=== PATIENT | female | born 1930 | race Caucasian/White ===

== ENCOUNTER 2018-04-03 13:35 | Inpatient (IN) | payer OTHER ==
[~2018-04-03] VITALS: Ht 149.9 cm; Wt 53.1 kg
--- NOTE | 2018-04-03 13:35 | NUR ---
PATIENT AMBULATED WITH FAMILY TO ER BED 12.
--- NOTE | 2018-04-03 13:40 | NUR ---
PT IS A 87 Y/O FEMALE BIB FAMILY WHO PRESENTS TO THE ED C/O HEADACHE. PER FAMILY PT HAS HAD INCREASING FREQUENCE OF HEADACHES OVER THE LAST FEW WEEKS. FAMILY STATES THAT PT WAS SEEN BY PCP AND DX WITH INCREASED FORGETFULLNESS. PT IN NO SIGNS OF PAIN AT THIS TIME. PT IN NO SIGNS OF CP, SOB, N/V/D. PT AWAKE AND ALERT, RR EVEN/UNLABORED. PT REPOSITIONED FOR COMFORT, BED IN LOWEST POSITION. ER MD DR. SHETH NOTIFIED. WILL CONTINUE TO MONITOR. HX---DM, HTN, DEPRESSION MEDS---FOSAMAX, LOSARTAN, ROPINAROLE, SERTRALINE, QUETAPINE, DONEZAPIL
[2018-04-03 13:51] VITALS: BP 156/48
--- NOTE | 2018-04-03 14:46 | NUR ---
PT BEING SEEN BY DR. SHETH.
[2018-04-03] MEDS ORDERED: KETOROLAC 60 MG/2 ML VIAL IM ONE (14:50)
[2018-04-03 15:50] LABS: BASOPHILS # (AUTO) 0.1 K/uL (0.00-0.22); BASOPHILS % (AUTO) 1.1 % (0.0-2.0); EOSINOPHILS # (AUTO) 0.1 K/uL (0-0.4); HEMATOCRIT 42.6 % (36-48); HEMOGLOBIN 14.3 g/dL (12.0-16.0); LYMPHOCYTES # (AUTO) 1.8 K/uL (2.5-16.5); LYMPHOCYTES % (AUTO) 30.5 % (20.5-51.1); MEAN CORPUSCULAR HEMOGLOBIN 30 pg (27-31); MEAN CORPUSCULAR HGB CONC 34 g/dL (33-37); MEAN CORPUSCULAR VOLUME 89.4 fL (80-94); MONOCYTES # (AUTO) 0.5 K/uL (0.8-1.0); NEUTROPHILS # (AUTO) 3.3 K/uL (1.8-7.7); NEUTROPHILS % (AUTO) 57.4 % (42.2-75.2); PLATELET COUNT (AUTO) 233 K/uL (140-450); RED BLOOD CELL COUNT(AUTO) 4.77 MIL/uL (4.20-5.40); RED CELL DISTRIBUTION WIDTH 13.9 % (11.6-13.7); WHITE BLOOD COUNT (AUTO) 5.8 K/uL (4.8-10.8)
[2018-04-03 16:19] LABS: PROTHROMBIN TIME 9.1 secs (10.8-13.4)
[2018-04-03] MEDS ORDERED: LOSA50TA1 PO (16:19)
[2018-04-03] MEDS ORDERED: [UNRECOGNIZED DRUG - CODE] PO (16:19)
[2018-04-03] MEDS ORDERED: DONE10TA10 PO (16:19)
[2018-04-03] MEDS ORDERED: QUET25TA PO (16:19)
--- NOTE | 2018-04-03 16:29 | NUR ---
PT BEING SEEN BY DR. SHETH
[2018-04-03 17:18] LABS: CHLORIDE 100 mmol/L (98-107); GLUCOSE 149 mg/dL (74-106); SODIUM SERUM 139 mmol/L (136-145)
[2018-04-03 17:19] LABS: ANION GAP 19.3 (8-16); CARBON DIOXIDE 23.5 mmol/L (21-32); CREATININE 0.8 mg/dL (0.6-1.3); POTASSIUM 3.8 mmol/L (3.5-5.1); UREA NITROGEN, BLOOD 14 mg/dL (7-18)
[2018-04-03 17:21] LABS: ALBUMIN 4.2 g/dL (3.4-5.0)
[2018-04-03 17:22] LABS: TOTAL BILIRUBIN 0.7 mg/dL (0.0-1.0)
[2018-04-03 17:23] LABS: ASPARTATE AMINOTRANSFERASE 21 U/L (15-37)
[2018-04-03] MEDS ORDERED: DEXTROSE 50% 50 ML SYR IVP PRN (18:20)
[2018-04-03] MEDS ORDERED: HYDROcodone/APAP 5/325 MG 1 TAB TAB PO PRN (18:20)
[2018-04-03] MEDS ORDERED: ONDANSETRON 4 MG/2 ML VIAL IVP PRN (18:20)
[2018-04-03] MEDS ORDERED: ACETAMINOPHEN 325 MG TAB PO PRN (18:20)
[2018-04-03] MEDS ORDERED: LORazepam 2 MG/ML VIAL IVP PRN (18:20)
--- NOTE | 2018-04-03 19:21 | NUR ---
REPORT GIVEN TO HVAC ESTIMATOR RN FOR CONTINUITY OF CARE.
--- NOTE | 2018-04-03 19:22 | NUR ---
report recieved from Padmini CHISHOLM
--- NOTE | 2018-04-03 19:35 | NUR ---
RECEIVED REPORT FROM ED RN FOR CONTINUITY OF CARE. PT IS A/OX3 BUT FORGETFUL, ON ROOM AIR. PT AMBULATES WITH ASSISTANCE, AND SKIN IS PINK/WARM/DRY AND INTACT. PT IS ABLE TO MAKE NEEDS KNOWN, AND ABLE TO FOLLOW COMMANDS. LUNGS SOUNDS CLEAR, HR EVEN AND REGULAR. PT HAS 20G IV TO LEFT FOREARM, ASYMPTOMATIC AND INTACT. PT DENIES ANY PAIN AT THIS TIME. BP SLIGHTLY ELEVATED, OTHER VITAL SIGNS STABLE. NO SIGNS OF DISTRESS NOTED. PT POSITIONED FOR COMFORT. BED RAILS UP X2, BED IN LOWEST POSITION. CALL LIGHT WITHIN REACH, WILL CONTINUE TO MONITOR.
--- NOTE | 2018-04-03 19:40 | NUR ---
PT Admited to Med/Surg, room 108B. Transfered via wheelchair with VSS. Belongings list completed. Report to Dorina CHISHOLM.
[2018-04-03 20:00] VITALS: BP 158/68
[2018-04-03] MEDS: DONEPEZIL 10 MG TAB PO SCH (20:57)
[2018-04-03] MEDS: QUEtiapine FUMARATE 25 MG TAB PO SCH (20:57)
[2018-04-03] MEDS: BLOOD GLUCOSE MONITORING 1 DEV DEV FS SCH (20:58)
[2018-04-03] MEDS: INSULIN LISPRO SLIDING SCALE 100 UNITS/ML VIAL SUBQ PRN (21:01)
--- NOTE | 2018-04-03 21:01 | NUR ---
ADMINISTERED SCHEDULED MEDICATIONS, PT VERBALIZED UNDERSTANDING OF MEDS AND TOLERATED ADMINISTRATION WELL.
[2018-04-04] VITALS: BP 148/82
--- NOTE | 2018-04-04 | NUR ---
VITAL SIGNS STABLE. NO SIGNS OF DISTRESS NOTED. PT POSITIONED FOR COMFORT. BED RAILS UP X2, BED IN LOWEST POSITION. CALL LIGHT WITHIN REACH, WILL CONTINUE TO MONITOR.
--- NOTE | 2018-04-04 02:10 | NUR ---
PT RESTING IN ROOM COMFORTABLY. NO SIGNS OF DISTRESS NOTED. PT POSITIONED FOR COMFORT. BED RAILS UP X2, BED IN LOWEST POSITION. CALL LIGHT WITHIN REACH, WILL CONTINUE TO MONITOR.
--- NOTE | 2018-04-04 05:20 | NUR ---
PT STILL RESTING, NO SIGNS OF DISTRESS NOTED.
[2018-04-04] MEDS: BLOOD GLUCOSE MONITORING 1 DEV DEV FS SCH ×4 (06:14→21:57)
[2018-04-04 07:10] LABS: BASOPHILS # (AUTO) 0.1 K/uL (0.00-0.22); EOSINOPHILS # (AUTO) 0.1 K/uL (0-0.4); EOSINOPHILS % (AUTO) 2.3 % (0.0-4.0); HEMATOCRIT 43.9 % (36-48); HEMOGLOBIN 14.4 g/dL (12.0-16.0); LYMPHOCYTES # (AUTO) 1.9 K/uL (2.5-16.5); LYMPHOCYTES % (AUTO) 34.3 % (20.5-51.1); MEAN CORPUSCULAR HEMOGLOBIN 30 pg (27-31); MEAN CORPUSCULAR HGB CONC 33 g/dL (33-37); MEAN CORPUSCULAR VOLUME 90.1 fL (80-94); MONOCYTES # (AUTO) 0.5 K/uL (0.8-1.0); MONOCYTES % (AUTO) 9.5 % (1.7-9.3); NEUTROPHILS % (AUTO) 52.9 % (42.2-75.2); PLATELET COUNT (AUTO) 227 K/uL (140-450); RED BLOOD CELL COUNT(AUTO) 4.87 MIL/uL (4.20-5.40); WHITE BLOOD COUNT (AUTO) 5.7 K/uL (4.8-10.8)
[2018-04-04 07:18] LABS: ANION GAP 13.3 (8-16); CARBON DIOXIDE 28.7 mmol/L (21-32); CHLORIDE 103 mmol/L (98-107); CREATININE 0.8 mg/dL (0.6-1.3); GLUCOSE 124 mg/dL (74-106); SODIUM SERUM 141 mmol/L (136-145); UREA NITROGEN, BLOOD 18 mg/dL (7-18)
--- NOTE | 2018-04-04 07:33 | NUR ---
ENDORSED PT TO DAY SHIFT PHAN AMAYA FOR CONTINUITY OF CARE. PT IN STABLE CONDITION.
--- NOTE | 2018-04-04 07:52 | NUR ---
RECEIVED REPORT FROM EDGER TAILER RN FOR CONTINUITY OF CARE. PT IS A/OX3 BUT FORGETFUL, ON ROOM AIR. PT AMBULATES WITH ASSISTANCE, AND SKIN IS PINK/WARM/DRY AND INTACT. PT IS ABLE TO MAKE NEEDS KNOWN, AND ABLE TO FOLLOW COMMANDS BUT SHOWS SIGNS OF CONFUSION. LUNGS SOUNDS CLEAR, HR EVEN AND REGULAR. PT HAS 20G IV TO LEFT FOREARM THAT'S SALINE LOCKED, ASYMPTOMATIC AND INTACT. PT DENIES ANY PAIN AT THIS TIME. BP SLIGHTLY ELEVATED, OTHER VITAL SIGNS STABLE. NO SIGNS OF DISTRESS NOTED. PT POSITIONED FOR COMFORT. BED RAILS UP X2, BED IN LOWEST POSITION. CALL LIGHT WITHIN REACH, WILL CONTINUE TO MONITOR.
[2018-04-04 08:00] VITALS: BP 145/59
--- NOTE | 2018-04-04 08:53 | NUR ---
PATIENT HAS BEEN SCREENED AND CATEGORIZED MODERATE NUTRITION RISK. PATIENT WILL BE SEEN WITHIN 3-5 DAYS OF ADMISSION. 04/06/18 04/08/[address]
[2018-04-04] MEDS ORDERED: ROPINIROLE HCL 4 MG PO SCH (09:00)
[2018-04-04] MEDS: ENOXAPARIN 40 MG/0.4 ML SYR SUBQ SCH (09:18)
[2018-04-04] MEDS: LOSARTAN 50 MG TAB PO SCH (09:19)
--- NOTE | 2018-04-04 09:22 | NUR ---
ADMINISTERED SCHEDULED TO PT. PT TOLERATED MEDS WELL. ALL NEEDS MET AT THIS TIME. BED IN LOW POSITION, CALL LIGHT WITHIN REACH. BED ALARM ACTIVATED.
[2018-04-04] MEDS ORDERED: rOPINIRole 1 MG TAB PO SCH (12:00)
--- NOTE | 2018-04-04 13:50 | NUR ---
CM NOTE FAXED ORDER FOR SNF PLACEMENT TO [facility] [phone] AND LEFT VM TO [facility] KELSIE PH# [phone]. PHYSICAL THERAPY EVALUATION AND RECOMMENDATION PENDING. EUNICE JONES.
--- NOTE | 2018-04-04 14:23 | NUR ---
Fire Extinguisher Charger Note: I faxed inquiries to the following snfs: [facility] Per [facility] , they can't accept patient because they are anticipating for patient to be shelter. [facility] Addendum: 04/04/18 at 1432 by Elba Zabala SS Per Martin from [facility] , no beds at this time.
--- NOTE | 2018-04-04 15:19 | NUR ---
CM NOTE PER [facility] ANUM IGLESIAS PH# [phone], IF PATIENT NEEDS TO GO TO A SNF, FOR [facility] AUTH# [id number]. CHARGE NURSE ALDAIR JONES.
[2018-04-04 16:00] VITALS: BP 156/73
[2018-04-04] MEDS: INSULIN LISPRO SLIDING SCALE 100 UNITS/ML VIAL SUBQ PRN (17:55)
--- NOTE | 2018-04-04 19:35 | NUR ---
ENDORSED PT TP AUTOMOTIVE SALES REPRESENTATIVE FOR CONTINUITY OF CARE. PT IN STABLE CONDITION.
--- NOTE | 2018-04-04 19:36 | NUR ---
RECEIVED BEDSIDE REPORT FROM DAY SHIFT NURSE JOSE LUIS RN, PT STABLE, NO DISTRESS NOTED, IV TO L FA 20G PATENT, INTACT, SL, PT ON ROOM AIR NO SOB, INITIAL ASSESSMENT DONE, ALL SAFETY PRECAUTION MET, CALL LIGHT WITHIN REACH, WILL CONTINUE TO MONITOR.
[2018-04-04] MEDS: DONEPEZIL 10 MG TAB PO SCH (21:51)
[2018-04-04] MEDS: QUEtiapine FUMARATE 25 MG TAB PO SCH (21:51)
[2018-04-04] MEDS: rOPINIRole 1 MG TAB PO SCH (21:52)
--- NOTE | 2018-04-04 21:52 | NUR ---
DUE MEDICATION ADMINISTERED, NO DISTRESS NOTED, CALL LIGHT WITHIN REACH, WILL CONTINUE TO MONITOR.
[2018-04-05] VITALS: BP 143/68
--- NOTE | 2018-04-05 00:10 | NUR ---
CHECKED ON PT, PT RESTING NO DISTRESS NOTED, CALL LIGHT WITHIN REACH, WILL CONTINUE TO MONITOR.
--- NOTE | 2018-04-05 02:10 | NUR ---
PT AMBULATED WITH NURSE AROUND NURSING AREA, PT TOLERATED WELL, NO DISTRESS NOTED, CALL LIGHT WITHIN REACH, WILL CONTINUE TO MONITOR.
--- NOTE | 2018-04-05 05:10 | NUR ---
CHECKED ON PT, PT RESTING, NO DISTRESS NOTED, CALL LIGHT WITHIN REACH, WILL CONTINUE TO MONITOR.
[2018-04-05] MEDS: BLOOD GLUCOSE MONITORING 1 DEV DEV FS SCH ×4 (06:40→20:57)
[2018-04-05] MEDS: INSULIN LISPRO SLIDING SCALE 100 UNITS/ML VIAL SUBQ PRN ×3 (06:41→20:54)
--- NOTE | 2018-04-05 07:14 | NUR ---
ENDORSED PT TO DAY SHIFT NURSE [place] RN PT STABLE, NO DISTRESS NOTED, CALL LIGHT WITHIN REACH, WILL CONTINUE TO MONITOR.
--- NOTE | 2018-04-05 07:15 | NUR ---
RECEIVED BEDSIDE REPORT FROM CARD PUNCHING MACHINE OPERATOR RNMOISE. PT RESTING IN BED WITH EYES CLOSED, NO DISTRESS NOTED, IV SITE PATENT, INTACT, ASYMPTOMATIC, SALINE LOCKED. RESPIRATIONS EVEN AND UNLABORED, NO DISTRESS OR SOB NOTED ON ROOM AIR. UPDATED BOARD. SAFETY PRECAUTIONS IN PLACE, BED IN LOWEST POSITION WITH BRAKES ON, CALL LIGHT WITHIN REACH, WILL CONTINUE TO MONITOR PATIENT.
[2018-04-05 08:00] VITALS: BP 147/57
[2018-04-05] MEDS: rOPINIRole 1 MG TAB PO SCH ×2 (08:26→20:49)
[2018-04-05] MEDS: LOSARTAN 50 MG TAB PO SCH (08:27)
[2018-04-05] MEDS: ENOXAPARIN 40 MG/0.4 ML SYR SUBQ SCH (08:28)
--- NOTE | 2018-04-05 08:30 | NUR ---
ORDERED MEDICATIONS GIVEN. PATIENT TOLERATED THEM WELL. PATIENT FINISHING UP EATING BREAKFAST. PATIENT HAS NO COMPLAINTS AT THIS TIME, DENIES PAIN. SAFETY PRECAUTION IN PLACE, CALL LIGHT WITHIN REACH, WILL CONTINUE TO MONITOR PATIENT.
--- NOTE | 2018-04-05 12:10 | NUR ---
BLOOD SUGAR 205, COVERAGE GIVEN. PATIENT TOLERATED IT WELL. PATIENT AMBULATED TO BATHROOM WITH STANDBY ASSIST. PATIENT. PATIENT VOIDED. SAFETY PRECAUTION IN PLACE, CALL LIGHT WITHIN REACH, BED ALARM ON, WILL CONTINUE TO MONITOR PATIENT.
--- NOTE | 2018-04-05 13:45 | NUR ---
PATIENT RESTING IN BED COMFORTABLY WITH EYES CLOSED, RESPIRATIONS EVEN AND UNLABORED. SAFETY PRECAUTIONS IN PLACE, CALL LIGHT WITHIN REACH, BED ALARM ON, WILL CONTINUE TO MONITOR PATIENT.
--- NOTE | 2018-04-05 14:20 | NUR ---
ORIENTATED PATIENT ABOUT CALL LIGHT USE AND WHY BED ALARM WAS PRESENT, PATIENT VERBALIZED UNDERSTANDING BUT STATED THAT SHE DOESN'T "NEED THEM, I CAN WALK ON MY OWN". RN VERBALIZED UNDERSTANDING BUT EDUCATED PATIENT ELECTRONICS PROCESSING SUPERVISOR LIGHT USE AND BED ALARM PURPOSE. SAFETY PRECAUTIONS IN PLACE, WILL CONTINUE TO MONITOR PATIENT.
--- NOTE | 2018-04-05 15:15 | NUR ---
PATIENT C/O OF HER CARE, VERBALIZED TO PATIENT WHY CERTAIN PROTOCOLS ARE IN PLACE FOR HER SAFETY AND TO PREVENT FALLS. PATIENT VERBALIZED HER UNDERSTANDING BUT IS STILL FRUSTRATED. SON FLOR IN TO SEE THE PATIENT. UPDATED HIM ON PLAN OF CARE. WILL CONTINUE TO MONITOR PATIENT.
[2018-04-05 16:00] VITALS: BP 118/58
--- NOTE | 2018-04-05 17:00 | NUR ---
Bucket Hooker Notes: I contact Patient's son Nallely at to discuss patient's recommendations for short term placement for P.T. however;his phone line was weak and son Nallely was unable to hear well and communicate with these speech writer. He provided a different contact number and requested to be call at the new number then ended the call.
--- NOTE | 2018-04-05 17:06 | NUR ---
Supervisor Mold Construction Notes: I contact Carmenza from admissions at [facility] to discuss Patient need for short term placement for P.T. & Possible need for long-term placement. Per [facility] they are unable to take patient at this time due to her agitation and confusion at this time. Per Loida she will be willing to do a bedside visit on Saturday and see if Patient will meet criteria to be placed in their facility. Per Loida she will be contacting son Ronald's at to inform him that if their facility will accept her it will be only for short term placement for P. T . i informed Cristine that I will contact son and discuss placement she thanked me and ended call.
--- NOTE | 2018-04-05 17:21 | NUR ---
Meteorology Teacher Notes: I contact Patient's son Nallely at to discuss patient's recommendations for short term placement for P.T. Patient's son was cooperative and seem confused with the different levels of care; therefore I explained to him with detail the differences between Skilled and Fci care and placement in a SNF as well the process of patient been accepted in a SNF. Patient's son understood and agreed. I informed him that [facility] still searching for placement and that [facility] admission staff Carmenza will be reviewing Patient Clinical information and have agreed to meet patient in a visit to evaluate if Patient meet to be placed in their facility but only short term. I inform him that Carmenza will be contacting. Patient's son agreed and thanked me for the information then ended the call.
--- NOTE | 2018-04-05 17:35 | NUR ---
PATIENT AGITATED ABOUT HER STAY IN HOSPITAL. VERBALIZED HER DIAGNOSIS AND SPOKE TO HER AT LENGTH ABOUT REASONS PERTAINING TO HER SAFETY. PATIENT EXPRESSED DESIRE TO GO HOME. SPOKE TO PATIENT ABOUT NEED FOR HOSPITAL STAY. PATIENT AGITATED. DINNER ARRIVED, DINNER SET UP FOR PATIENT. SAFETY PRECAUTION IN PLACE, CALL LIGHT WITHIN REACH, BED ALARM ON, WILL CONTINUE TO MONITOR PATIENT.
--- NOTE | 2018-04-05 17:45 | NUR ---
PATIENT'S FRIEND MILADYS CALLED, TRANSFERRED HIM TO PATIENT'S PHONE. PATIENT RESTING IN BED, SPEAKING TO HER FRIEND. NO COMPLAINTS AT THIS TIME, SAFETY PRECAUTIONS IN PLACE, CALL LIGHT WITHIN REACH, WILL CONTINUE TO MONITOR PATIENT.
--- NOTE | 2018-04-05 18:15 | NUR ---
PATIENT'S SON FLOR GAVE HIS BROTHER RYAN'S PHONE # IN CASE WE COULD NOT REACH HIM. RYAN'S PHONE # IS [phone]. RN VERBALIZED UNDERSTANDING. PASSED THIS INFORMATION TO REYNA, ACTIVE DIRECTORY ENGINEER. PATIENT CURRENTLY RESTING IN BED, ON THE PHONE WITH HER FRIEND, WILL CONTINUE TO MONITOR PATIENT.
--- NOTE | 2018-04-05 19:20 | NUR ---
REPORT GIVEN TO RATE MARKER RN AT BEDSIDE FOR CONTINUITY OF CARE. PATIENT SLEEPING, PATIENT IN STABLE CONDITION.
--- NOTE | 2018-04-05 19:21 | NUR ---
RECEIVED REPORT FROM HERBERT AT BEDSIDE FOR CONTINUITY OF CARE. PT AAOX2. PT IV NOTED LFA 20G SALINE LOCK. NO SOB NO S/S OF DISTRESS ON RA. PT CONFUSED AT TIMES. BED LOWERED CALL LIGHT WITHIN REACH WILL CONTINUE.
[2018-04-05] MEDS: DONEPEZIL 10 MG TAB PO SCH (20:50)
[2018-04-05] MEDS: QUEtiapine FUMARATE 25 MG TAB PO SCH (20:50)
--- NOTE | 2018-04-05 21:00 | NUR ---
PT FOLLOWING COMMANDS, AND BEING COMPLIANT AND TOOK ALL MEDS. WILL CONTINUE TO MONITOR.
[2018-04-06] VITALS: BP 93/57
--- NOTE | 2018-04-06 01:34 | NUR ---
PT SLEEPING NO SOB NO S/S OF DISTRESS ON RA. WILL CONTINUE TO MONITOR.
[2018-04-06] MEDS: BLOOD GLUCOSE MONITORING 1 DEV DEV FS SCH ×4 (05:41→21:00)
--- NOTE | 2018-04-06 07:10 | NUR ---
ENDORSED REPORT TO DAYSHIFT NURSE AT BEDSIDE FOR CONTINUITY OF CARE.
--- NOTE | 2018-04-06 07:15 | NUR ---
RECEIVED PT FROM TEXTILE DESIGNER NURSE, PT IS AWAKE AND SEATED ON THE BED WITH AN IV LINE ON THE LEFT FA G.20 ON SALINE LOCK, PT DENIES PAIN AND NO SIGN OF DISTRESS NOTED, WILL MONITOR PT.
[2018-04-06 08:00] VITALS: BP 112/50
[2018-04-06] MEDS: LOSARTAN 50 MG TAB PO SCH (08:48)
[2018-04-06] MEDS: rOPINIRole 1 MG TAB PO SCH ×2 (08:48→20:48)
[2018-04-06] MEDS: ENOXAPARIN 40 MG/0.4 ML SYR SUBQ SCH (08:50)
--- NOTE | 2018-04-06 08:55 | NUR ---
PT IS AWAKE AND UP FIXING HER BED, ASSISTED BACK TO BED, V/S TAKEN AND IS STABLE, PT DENIES PAIN, ORAL MEDICATIONS GIVEN AND PT TOLERATED IT. NO SIGN OF DISTRESS NOTED. WILL CONTINUE TO MONITOR PT.
--- NOTE | 2018-04-06 11:57 | NUR ---
PT IS AWAKE AND LYING ON THE BED, BLOOD GLUCOSE CHECK AND RESULT IS 140, NO INSULIN COVERAGE NEEDED, NO SIGN OF DISTRESS NOTED ON THE PT. WILL MONITOR PT.
[2018-04-06 16:00] VITALS: BP 156/63
[2018-04-06] MEDS: INSULIN LISPRO SLIDING SCALE 100 UNITS/ML VIAL SUBQ PRN ×2 (17:16→20:55)
--- NOTE | 2018-04-06 17:17 | NUR ---
CHARGE NURSE, YUE SPOKE TO THE PT'S SON, CHERRI, AND SON SAID THAT NOBODY FROM THE FAMILY CAN TOOL AND EQUIPMENT RENTAL CLERK THE PT TODAY. WILL INFORM DR. JONES.
--- NOTE | 2018-04-06 17:17 | NUR ---
SPOKE WITH THE SON BRIDGER STATED HE OR HIS BROTHER UNABLE TO SPECIAL SYSTEMS TECHNICIAN PATIENT AND HE IS GOING TO WORK NOTIFIED [facility] AND WILL NOTIFY DR JONES.
--- NOTE | 2018-04-06 17:20 | NUR ---
PT IS AWAKE AND TALKING,, BLOOD GLUCOSE CHECK DONE AND RESULT IS 162 AND 2 UNITS INSULIN WAS GIVEN ON THE RT UA AND PT TOLERATED IT. WILL MONITOR PT.
--- NOTE | 2018-04-06 18:00 | NUR ---
SPOKE WITH DR MILLER RIBBON WEAVER FOR DR JONES NOTIFIED THAT UNABLE TO D/C PATIENT HOME BECAUSE THERE IS NO ONE AT HOME TO TAKE CARE OF PATIENT .NEW ORDER TO HOLD THE DISCHARGE. CALLED PATIENT'S SON BRIDGER [phone] THAT WE HOLD THE DISCHARGED FOR TONIGHT AND WILL FOLLOW UP TOMORROW.
--- NOTE | 2018-04-06 19:15 | NUR ---
ENDORSED PT TO COD CLERK NURSEZAIDA FOR CONTINUITY OF CARE, PT IS STABLE AT THIS TIME.
[2018-04-06] MEDS: QUEtiapine FUMARATE 25 MG TAB PO SCH (20:48)
[2018-04-06] MEDS: DONEPEZIL 10 MG TAB PO SCH (20:48)
[2018-04-07] VITALS: BP 122/71
--- NOTE | 2018-04-07 04:11 | NUR ---
PT SLEEPING. NO SOB NO S/S OF DISTRESS ON RA. WILL CONTINUE TO MONITOR.
[2018-04-07] MEDS: BLOOD GLUCOSE MONITORING 1 DEV DEV FS SCH ×2 (05:49→12:09)
--- NOTE | 2018-04-07 07:20 | NUR ---
ENDORSED REPORT TO DAYSHIFT NURSE AT BEDSIDE FOR CONTINUITY OF CARE.
--- NOTE | 2018-04-07 07:21 | NUR ---
RECEIVED BEDSIDE REPORT FROM MACHINE BRUSH MAKER NURSE. PATIENT IS AWAKE, ALERT AND ORIENTEDX2. NO SIGNS OF DISTRESS ON RA. SKIN IS INTACT. IV ON L FA 22G SALINE LOCK. CLEAN, DRY AND INTACT. FALL RISK PROTOCOL IN PLACE. WEAKNESS. MED SURGE PATIENT. PATIENT AMBULATES W ASSIST. CONTINENT. WILL CONTINUE TO MONITOR THE PATIENT. BED IN LOW POSITION. CALL LIGHT WITHIN REACH
[2018-04-07 08:00] VITALS: BP 140/76
--- NOTE | 2018-04-07 09:00 | NUR ---
PATIENT WANTS TO GO HOME. TOLD HER IT IS NOT TIME. WE STILL HAVE TO HAVE DISCHARGE ORDER AND WORK ON DISCHARGE
[2018-04-07] MEDS: LOSARTAN 50 MG TAB PO SCH (10:36)
[2018-04-07] MEDS: rOPINIRole 1 MG TAB PO SCH (10:37)
[2018-04-07] MEDS: ENOXAPARIN 40 MG/0.4 ML SYR SUBQ SCH (10:39)
--- NOTE | 2018-04-07 11:00 | NUR ---
PATIENT WALKING AROUND THE ROOM. NO SIGNS OF DISTRESS. WILL CONTINUE TO MONITOR
--- NOTE | 2018-04-07 13:00 | NUR ---
FLOR, SON CALLED TO SAY NO ONE CAN PROJECT MANAGER INDUSTRIAL THE PATIENT. ASKED IF HE CAN PAY FOR TRANSPORT BACK HOME AND HE SAID HE IS JUST WAKING UP AND UNABLE TO TALK AT THIS TIME. HE SAID HE WILL CALL BACK
--- NOTE | 2018-04-07 13:28 | NUR ---
Maintenance Technician Note: [facility] facility placement follow up: Carmenza from [facility] came to hospital to evaluate patient, she stated they can't accept patient because patient tries to get out of room. Per Margaret from [facility] , they are considering accepting patient, Margaret is aware patient will need power house engineer placement, director of casework Emiliana made aware.
--- NOTE | 2018-04-07 13:34 | NUR ---
CM NOTE CATHERINE OF [facility] CAME TO EVALUATE PATIENT. PER CATHERINE, [facility] CANNOT TAKE PATIENT BECAUSE THEY DO NOT HAVE A LOCKED UNIT AT THIS TIME AND PATIENT MIGHT WALK OUT OF THEIR FACILITY. EUNICE JONES. LEFT VM TO [facility] ANUM IGLESIAS PH# [phone]. NO CALL BACK AT THIS TIME.
--- NOTE | 2018-04-07 15:00 | NUR ---
PATIENT IN NO DISTRESS. LAYING IN BED. WILL CONTINUE TO MONITOR THE PATIENT
--- NOTE | 2018-04-07 15:36 | NUR ---
CM NOTE PER [facility] ANUM IGLESIAS, THE SAME AUTH # [id number] FOR THE ACCEPTING SNF AND [facility]. EUNICE JONES.
[2018-04-07 16:00] VITALS: BP 152/48
--- NOTE | 2018-04-07 16:04 | NUR ---
Optical Lab Technician Note: Per Margaret from [facility] , patient may go to room 24c anytime today, accepting physician is , I provided her with snf authorization from [facility] [id number], I called patient's son Aroldo to inform him patient has been accepted at [facility], no answer, left message.
--- NOTE | 2018-04-07 16:25 | NUR ---
PATIENT EDUCATED ON FOLLOW UP WITH PCP. EDUCATED ON CONTINUED HOME MEDS. EDUCATED ON PT AND DIABETIC MANAGEMENT. REMOVED ID BANDS. IV REMOVED TIP INTACT. EDUCATED ON WHEN TO GO TO THE ER. ANSWERED ALL QUESTIONS AND CONCERNS. PATIENT SIGNED DISCHARGE PAPERS. FLOR, SON TOOK PATIENT IN STABLE CONDITION AND WILL TAKE PATIENT TO [facility]. Addendum: 04/07/18 at 1635 by Barbara Haider RN PNA AND FLU VACCINES UP TO DATE
== END 2018-04-07 16:25 | DRG 103 ==
LOC: MED 13:35 → MTU 18:30
PROVIDERS: ADMIT Hospitalist; ATTEND Hospitalist
DX: G43.909 Migraine, unspecified, not intractable, without status migrainosus (principal); F03.90 Unspecified dementia, unspecified severity, without behavioral disturbance, psychotic disturbance, mood disturbance, and anxiety; I10 Essential (primary) hypertension; E11.9 Type 2 diabetes mellitus without complications; Z96.659 Presence of unspecified artificial knee joint
CPT/HCPCS: 36415; 70450; 71045; 80048; 80053; 82948; 83880; 84484; 85025; 85610; 85730; 87081; 93005; 96372; 99285; J1650; J1815; J1885; J2060; Q0092